=== PATIENT | female | born 1955 | race Caucasian/White ===

== ENCOUNTER 2023-11-24 19:26 | Emergency (ER) | payer MEDICARE, OTHER ==
[~2023-11-24] VITALS: Ht 172.7 cm; Wt 77.8 kg
[2023-11-24] MEDS ORDERED: ROSUVASTATIN CA10 MG PO (20:00)
[2023-11-24] MEDS ORDERED: METHIMAZOLE5 MG PO (20:00)
[2023-11-24 20:31] LABS: EOSINOPHILS 0.4 % (0-6); HEMOGLOBIN 12.8 g/dL (12.0-18.0); RDW 14.1 (10.5-15.0)
[2023-11-24 20:34] LABS: BASOPHILS 0.4 % (0-2); HEMATOCRIT 38.7 % (35.0-50.0); MCH 30.4 (27-36); MCHC 33.1 g/dl (30-36); MONOCYTES 2.2 % (0-12); PLATELET COUNT 214 K/uL (140-440)
[2023-11-24 20:44] LABS: ALBUMIN 3.8 g/dL (3.4-5.0); ALBUMIN/GLOBULIN RATIO 1.03 (1.1-2.4); ANION GAP 14.8 (7-21); BILIRUBIN, TOTAL 0.7 ng/dL (0.2-1.0); BUN/CREATININE RATIO 14.81 (6.0-28.6); CREATININE, SERUM 0.81 mg/dL (0.55-1.02); POTASSIUM 3.8 mmol/L (3.5-5.1); PROTEIN, TOTAL 7.5 g/dL (6.4-8.2); TSH, 3RD GENERATION 4.221 uIU/mL (0.358-3.740)
[2023-11-24 21:35] VITALS: BP 129/84
[2023-11-26 09:33] LABS: TRIIODOTHYRONINE,FREE FREE T3 2.5 pg/mL (2.5-4.3)
--- NOTE | 2023-11-26 12:28 | EKG ---
[facility] [address] [place], [place] [address] Signed Normal sinus rhythm Normal ECG No previous ECGs available Confirmed by Nathan Villanueva ([id number]) on 11/26/2023 12:28:35 PM Electronically Signed By: NATHAN VILLANUEVA MD 11/26/23 1228 PATIENT NAME: SUNNY COVARRUBIAS Electrocardiogram DATE OF : 53 PHYSICIAN: NATHAN VILLANUEVA MD REPORT #: [id number] REPORT IS CONFIDENTIAL AND NOT TO BE RELEASED WITHOUT AUTHORIZATION
== END 2023-11-24 22:00 | disposition home or self-care (01) ==
LOC: ED 19:26
PROVIDERS: Internal Medicine
DX: R00.2 Palpitations (principal); E78.00 Pure hypercholesterolemia, unspecified; Z79.899 Other long term (current) drug therapy
CPT/HCPCS: 36415; 80053; 84439; 84443; 84481; 85025; 93005; 93010; 99285